=== PATIENT | male | born 1990 ===

== ENCOUNTER 2018-03-31 18:22 | Emergency (ER) | payer OTHER ==
[2018-03-31 18:35] VITALS: BP 139/89
[2018-03-31] MEDS ORDERED: Tetan/Diph/Pertus SYR(Tdap)* 0.5 ML SYR(BOOSTRIX) use SYR IM ONE (18:37)
--- NOTE | 2018-03-31 18:38 | UC ---
Laceration HPI - HPI Summary HPI Summary: 27 y/o male presents to the urgent care c/o laceration over his RT eyebrow by a scope from recoil around 1630pm today. Pt reports he was a at friends house and learning how to shoot when this happened. Pain is 1/10, bleeding stopped w/ pressure, His PCP told him he needs a Tetanus shot this year. He applied Neosporin oint, but he wasn't sure it he needed stitches. Pt denies eye pain, visual disturbances, photophobia, ever, CUELLO, dizziness, SOB, chest pain, abdominal pain, N/V/D - History Of Current Complaint Chief Complaint: UCLaceration Stated Complaint: CUT OVER EYE Time Seen by Provider: 03/31/18 18:36 Hx Obtained From: Patient Laceration Location: Head - laceration over the RT eyebrow Mechanism Of Injury: Sharp Trauma Onset/Duration: Sudden Onset, Lasting Hours - 1hrs ago Pain Intensity: 1 Pain Scale Used: 0-10 Numeric Aggravating Factors: Other: - touch Related History: Dominant Hand Right - Allergies/Home Medications Allergies/Adverse Reactions: Allergies Allergy/AdvReac Type Severity Reaction Status Date / Time No Known Allergies Allergy Verified 03/31/18 18:35 Home Medications: Home Medications Multivitamin [Multivitamins] 1 cap PO DAILY 03/31/18 [History Confirmed 03/31/18 ] PMH/Surg Hx/FS Hx/Imm Hx Previously Healthy: Yes - Pt denies PMHX - Surgical History Surgical History: Yes Surgery Procedure, Year, and Place: STRABISMUS SURGERY AN INFANT, F/U EYE SURGERY AT AGE 11 - Family History Known Family History: Positive: Hypertension - Social History Occupation: Employed Full-time Lives: With Family Alcohol Use: Occasionally Substance Use Type: None Smoking Status (MU): Never Smoked Tobacco - Immunization History Most Recent Tetanus Shot: ALMOST 5 YEARS AGO Review of Systems Constitutional: Negative Skin: Other - laceration over the Rt eyebrow s/p injury Eyes: Negative ENT: Negative Respiratory: Negative Cardiovascular: Negative Gastrointestinal: Negative Genitourinary: Negative Motor: Negative Neurovascular: Negative Musculoskeletal: Negative Neurological: Negative Psychological: Negative Is Patient Immunocompromised?: No All Other Systems Reviewed And Are Negative: Yes Physical Exam - Summary Physical Exam Summary: Vital Signs Reviewed: Yes General: well developed, well nourished male sitting in the examining table w/ o any apparent distress Eye Exam: Normal Eyes: Positive: Conjunctiva Clear - PERRLA, EOMI, fundi grossly normal ENT: Positive: Normal ENT inspection, Hearing grossly normal, Pharynx normal, TMs normal Neck: Positive: Supple, Nontender, No Lymphadenopathy Respiratory: Positive: Chest non-tender, Lungs clear, Normal breath sounds, No respiratory distress Cardiovascular: Positive: RRR, No Murmur, Pulses Normal, Brisk Capillary Refill Abdomen Description: Positive: Nontender, No Organomegaly, Soft. Negative: CVA Tenderness (R), CVA Tenderness (L) Bowel Sounds: Positive: Present Musculoskeletal: Positive: Strength Intact, ROM Intact, No Edema Neurological: Positive: Alert, Muscle Tone Normal Psychological Exam: Normal Skin: Positive: Superficial linear laceration over the medial side of the Rt eyebrow, bleeding stopped, non tender to palpation, mild swelling, about 1.8cm in size. No foreign body observed. FROM of head, sensation intact, capillary refill brisk, and pulses WNL. Triage Information Reviewed: Yes Vital Signs: Initial Vital Signs Temp 97.5 F 03/31/18 18:31 Pulse 74 03/31/18 18:31 Resp 16 03/31/18 18:31 BP 139/89 03/31/18 18:31 Pulse Ox 98 03/31/18 18:31 Laceration Repair - Laceration Repair 1 Description: Linear Laceration Size After Repair: Length (cm) - 1.8cm Modified For Repair: No Cleansing Completed Via Routine Prep: Yes Irrigation With Pressure Irrigation Device: Yes Closure Material: Skin Adhesive, SteriStrips - 5 Closure Method: Single Layer Suture Of: Skin Laceration Course/Dx - Course/Dx Course Of Treatment: 27 y/o male presents to the urgent care c/o laceration over his RT eyebrow by a scope from recoil around 1630pm today. Pt reports he was a at friends house and learning how to shoot when this happened. Pain is 1/ 10, bleeding stopped w/ pressure, His PCP told him he needs a Tetanus shot this year. He applied Neosporin oint, but he wasn't sure it he needed stitches. Pt denies eye pain, visual disturbances, photophobia, ever, CUELLO, dizziness, SOB, chest pain, abdominal pain, N/V/D. Hx obtained. Pt w/Superficial linear laceration over the medial side of the Rt eyebrow, bleeding stopped, non tender to palpation, mild swelling, about 1.8cm in size on examination. LACERATION PROCEDURE NOTE: . Copious irrigation was done with saline and the wound explored. There was no FB or deep structure injury noted. wound cleaned w/ Iodine swabs. Laceration closed w/ skin adhesive and 5 steri-strips. Wound dressed w/ sterile gauze.The Pt tolerated the procedure well without adverse effects. Neurovascular intact and FROM of head. Tdap ordered and applied by nurse. Pt advised if any signs of infection develop to immediately return to the urgent care of PCP for further management and treatment. Pt understood and agreed and left the clinic ambulating A&Ox3. - Differential Dx - Laceration/Wound Differental Diagnoses: Abrasion, Avulsion, Laceration, Puncture Wound, Tendon Laceration Provider Diagnoses: 1-superficial laceration repair over the RT eyebrow Discharge - Sign-Out/Discharge Documenting (check all that apply): Discharge/Admit/Transfer - D/C home - Discharge Plan Condition: Stable Disposition: HOME Patient Education Materials: Laceration (ED), Skin Adhesive Care (ED) Referrals: [facility] [place] [place] [facility]ERRAL [Outside] - If Needed Additional Instructions: 1- Keep wound clean and dry. 2-Take Ibuprofen or Tylenol PO q6-8hrs prn for pain or swelling. Apply ice to alleviate swelling 3- If you develop fever or redness around wound please return to the Urgent care or f/u w/ PCP for further management - Billing Disposition and Condition Condition: STABLE Disposition: HOME
== END 2018-03-31 19:05 | disposition home or self-care (01) ==
LOC: UCEAST 18:22
DX: S01.111A Laceration without foreign body of right eyelid and periocular area, initial encounter (principal); X58.XXXA Exposure to other specified factors, initial encounter; Y93.89 Activity, other specified; Y92.008 Other place in unspecified non-institutional (private) residence as the place of occurrence of the external cause; Z23 Encounter for immunization
CPT/HCPCS: 12011; 90471; 90715; 99203; G0463